=== PATIENT | male | born 1995 | race Asian ===

== ENCOUNTER 2023-03-02 00:38 | Emergency (ER) | payer OTHER ==
[~2023-03-02] VITALS: Ht 167.6 cm; Wt 72.6 kg
--- NOTE | 2023-03-02 00:44 | NUR ---
[id number] CC OF NECK PAIN FOR 2 WKS, PAIN STARTED LOWER BACK, NOW ASCENDING TO NECK. NO PAIN MEDS TAKEN. SCALE OF 8/10. PLACED IN BED, APPEARS IN PAIN WITH FACIAL GRIMACING. VITALS CHECKED.
[2023-03-02] MEDS ORDERED: KETO10TA2 PO (00:52)
[2023-03-02] MEDS ORDERED: CYCL10TA9 PO (00:52)
[2023-03-02 00:59] VITALS: BP 153/131
[2023-03-02] MEDS ORDERED: CYCLOBENZAPRINE 10 MG TABLET PO ONE (01:00)
[2023-03-02] MEDS ORDERED: KETOROLAC TROMETHAMINE INJ 60 MG/2 ML VIAL IM ONE ×2 (01:00→01:02)
[2023-03-02] MEDS ORDERED: CYCLOBENZAPRINE 10 MG TABLET ONE (01:03)
--- NOTE | 2023-03-02 02:12 | NUR ---
Patient discharged to home in stable condition. Written and verbal after care instructions given. Patient verbalizes understanding of instruction.
== END 2023-03-02 02:15 | disposition home or self-care (01) ==
LOC: ER 00:40
DX: M54.2 Cervicalgia (principal)
CPT/HCPCS: 99283; 96372; J1885